=== PATIENT | male | born 1980 | race Caucasian/White ===

== ENCOUNTER 2016-12-20 00:13 | Emergency (ER) | payer SELFPAY ==
--- NOTE | 2016-12-20 06:06 | ER ---
ADMIT: 12/20/2016 RM/LOC: ER [facility] MR#: [id number] [id number] YASSINE CHERRY [address] [place] [address] Emergency Room Report SEX: M AGE: 36 : 1980 DATE: 12/20/2016 The patient is a 36-year-old male with known renal colic, evaluated here [address] that showed 2.9 mm left proximal ureteral stone with no hydro. Complains of persistent pain, nausea, urgency. Denies any vomiting, fevers, or chills. Exam remarkable for a morbidly obese, nontoxic, afebrile male. Urine shows 109 wbc's, 3+ blood, otherwise negative urine. Normal CBC, CMP, except glucose 216. Normal CRP, lactic acid, and lipase. The patient was given fluid bolus, Zofran, Toradol, Dilaudid with improvement of pain. Sent home with instructions for fluid push, strain urine, and follow up with Dr. Harris as needed. Sumeet Lemus MD/ blaire JOB #: [id number] CC: Sumeet Lemus MD, Attending Physician Deyvi Harris MD, Family Physician Haim Baltazar MD
== END 2016-12-20 02:05 | disposition home or self-care (01) ==
LOC: ER 00:13
DX: N20.1 Calculus of ureter (principal); E66.01 Morbid (severe) obesity due to excess calories; E11.9 Type 2 diabetes mellitus without complications; I10 Essential (primary) hypertension; Z87.442 Personal history of urinary calculi; Z79.84 Long term (current) use of oral hypoglycemic drugs